=== PATIENT | female | born 1965 | race Caucasian/White ===

== ENCOUNTER 2024-11-18 12:47 | Day surgery (SDC) | payer MEDICAID ==
[2024-11-18] VITALS (9 sets, daily range): BP systolic 111–152; BP diastolic 73–100; PULSE 60–99; RESP 14–23; TEMP 98.7; O2SAT 98–100
[~2024-11-18] VITALS: Ht 167.6 cm; Wt 69.8 kg
[2024-11-18] MEDS ORDERED: normal saline 1000ml 1,000 ML IV SCH (13:10)
[2024-11-18] MEDS ORDERED: fentaNYL/PF 50MCG/1 ML 2ML syringe IV ONE (13:10)
[2024-11-18] MEDS ORDERED: MIDAZolam 1mg/ml 10ml vial IV ONE (13:10)
[2024-11-18] MEDS ORDERED: ASPI-1397 PO (13:20)
[2024-11-18] MEDS ORDERED: FAMO40TA86 PO (13:20)
[2024-11-18] MEDS ORDERED: LEVO75TA PO (13:20)
[2024-11-18] MEDS ORDERED: EZET-59 (13:20)
[2024-11-18] MEDS ORDERED: ESTR1PAT94 (13:20)
== END 2024-11-18 14:15 | disposition home or self-care (01) ==
LOC: SSTAY O 12:47 → EDSTATUS 20:00
PROVIDERS: ATTEND Student in an Organized Health Care Education/Training Program
DX: I63.89 Other cerebral infarction (principal); E78.00 Pure hypercholesterolemia, unspecified; Z88.0 Allergy status to penicillin; Z88.1 Allergy status to other antibiotic agents
CPT/HCPCS: 93325; C8925; J7030; 93312